=== PATIENT | female | born 1955 | race Caucasian/White ===

== ENCOUNTER → 2023-11-15 10:58 | Outpatient (REF) | payer MEDICARE, OTHER, SELFPAY | LOC: HWWDC 10:58 | PROVIDERS: ATTENDING PHYSICIAN Family Medicine Geriatric Medicine | DX: R10.2 Pelvic and perineal pain (principal); M81.0 Age-related osteoporosis without current pathological fracture; Z12.31 Encounter for screening mammogram for malignant neoplasm of breast | CPT/HCPCS: 76830; 76856; 77063; 77067; 77080 ==